=== PATIENT | male | born 1965 | race Hispanic/Latino ===

== ENCOUNTER 2023-02-04 13:07 | Inpatient (IN) | payer OTHER ==
[~2023-02-04 13:07] MED LIST: Iopamidol 370 76% 100 ML VIAL ONE
[2023-02-04] MEDS ORDERED: Acetaminophen 500 MG TAB ONE (13:42)
[2023-02-04 13:43] LABS: #Basophils 0.1 10x3/uL (0.0-0.2); #Eosinphils 0.2 10x3/uL (0.0-0.5); #Monocytes 0.6 10x3/uL (0.0-1.1); #Neutrophils 11.2 10x3/uL (1.5-8.4); %Basophils 0.5 % (0.0-2.0); %Eosinophils 1.2 % (0.0-6.0); %Lymphocytes 6.7 % (18.0-47.0); %Monocytes 4.7 % (0.0-10.0); %Neutrophils 86.4 % (40.0-75.0); Hematocrit 40.4 % (38.8-50.0); Hemoglobin 13.4 g/dL (13.5-17.5); Mean Corpuscular HGB CONC 33.2 g/dL (32.0-36.0); Mean Corpuscular Hemoglobin 29.1 pg (27.0-33.0); Mean Corpuscular Volume 87.6 fl (81.2-95.1); Mean Platelet Volume 9.4 fl (7.4-10.4); Platelet Count 335 10x3/uL (150-450); RBC Distribution Width 14.1 % (11.5-14.5); Red Blood Cell (RBC) Count 4.61 10x6/uL (4.32-5.72); White Blood Cell (WBC) Count 12.9 10x3/uL (3.5-10.5)
[2023-02-04 14:10] LABS: ALT (SGPT) 41 U/L (8-55); AST (SGOT) 21 U/L (5-34); Albumin 3.5 g/dL (3.5-5.0); Alkaline Phosphatase 60 U/L (40-110); Anion Gap 13 mmol/L (10-20); BUN (Urea Nitrogen) 25 mg/dL (8.4-25.7); Bilirubin, Total 0.4 mg/dL (0.2-1.2); Calc. Creatinine Clearance 0 mL/min (70-130); Calcium 8.5 mg/dL (7.8-10.44); Carbon Dioxide 26 mmol/L (22-29); Chloride 103 mmol/L (98-107); Estimated GFR 70; Glucose 200 mg/dL (70-105); Potassium 4.6 mmol/L (3.5-5.1); Protein, Total 6.5 g/dL (6.0-8.3); Sodium 137 mmol/L (136-145)
[2023-02-04 14:16] LABS: Troponin I Less than 0.010 ng/mL (< 0.028)
[2023-02-04] MEDS ORDERED: Cefepime 2 GM VIAL ONE (14:18)
[2023-02-04] MEDS ORDERED: Vancomycin 1 GM VIAL ONE (14:19)
[2023-02-04] MEDS ORDERED: Vancomycin HCl 500 MG VIAL ONE (14:19)
[2023-02-04 15:22] LABS: SARS-CoV-2 NAA Rapid Test Not Detected (NotDetected)
[2023-02-04 17:31] LABS: Lactic Acid 2.1 mmol/L (0.5-2.2)
[2023-02-04] MEDS ORDERED: Ondansetron PF 4 MG/2 ML Vial IVP PRN (17:56)
[2023-02-04] MEDS ORDERED: Ondansetron ODT 4 MG TAB PO PRN (17:56)
[2023-02-04] MEDS ORDERED: Dextrose 5% in Water 1,000 ML IV PRN (18:04)
[2023-02-04] MEDS ORDERED: Glucagon 1 MG/ML KIT IM PRN (18:04)
[2023-02-04] MEDS ORDERED: Dextrose 50% Abboject 50 ML SYRINGE SLOW IVP PRN (18:04)
[2023-02-04] MEDS: Sodium Chloride 0.9% 1,000 ML IV SCH (20:40)
[2023-02-04 21:19] VITALS: BMI 30.7
[2023-02-04] MEDS ORDERED: LevoFLOXacin 750 mg/D5W 150 ml Premix Bag ONE (21:40)
[2023-02-04] MEDS: LevoFLOXacin 750 mg/D5W 750 MG in Premix Bag 1 BAG IVPB SCH (21:52)
[2023-02-04] MEDS: HumaLOG 300 UNITS/3 ML VIAL SC PRN (23:11)
[2023-02-05] MEDS: Cefepime 2 GM in Sodium Chloride 0.9% 100 ML IVPB SCH ×2 (01:18→14:42)
[2023-02-05] MEDS: Vancomycin HCl 1 GM in Sodium Chloride 0.9% 250 ML 250 ML IVPB SCH ×2 (01:19→14:43)
[2023-02-05] MEDS: Acetaminophen 325 MG TAB PO PRN ×2 (01:49→08:23)
[2023-02-05 04:35] LABS: #Basophils 0.1 10x3/uL (0.0-0.2); #Eosinphils 0.3 10x3/uL (0.0-0.5); #Monocytes 0.7 10x3/uL (0.0-1.1); #Neutrophils 5.8 10x3/uL (1.5-8.4); %Basophils 0.6 % (0.0-2.0); %Eosinophils 3.5 % (0.0-6.0); %Monocytes 8.4 % (0.0-10.0); Hemoglobin 11.7 g/dL (13.5-17.5); Mean Corpuscular HGB CONC 32.5 g/dL (32.0-36.0); Mean Corpuscular Hemoglobin 28.6 pg (27.0-33.0); Mean Platelet Volume 9.6 fl (7.4-10.4); Platelet Count 277 10x3/uL (150-450); RBC Distribution Width 14.4 % (11.5-14.5); Red Blood Cell (RBC) Count 4.09 10x6/uL (4.32-5.72); White Blood Cell (WBC) Count 8.7 10x3/uL (3.5-10.5)
[2023-02-05 04:59] LABS: Anion Gap 12 mmol/L (10-20); BUN (Urea Nitrogen) 15 mg/dL (8.4-25.7); Calc. Creatinine Clearance 144 mL/min (70-130); Calcium 8.3 mg/dL (7.8-10.44); Carbon Dioxide 25 mmol/L (22-29); Chloride 106 mmol/L (98-107); Estimated GFR 103; Glucose 174 mg/dL (70-105); Potassium 3.9 mmol/L (3.5-5.1); Sodium 139 mmol/L (136-145)
[2023-02-05] MEDS: Sodium Chloride 0.9% 1,000 ML IV SCH ×2 (06:28→21:34)
[2023-02-05] MEDS: HumaLOG 300 UNITS/3 ML VIAL SC PRN ×4 (06:30→21:36)
[2023-02-05] MEDS ORDERED: Morphine 2 MG/ML VIAL SLOW IVP PRN (15:13)
[2023-02-05] MEDS: HYDROcodone/Acetaminophen 5/325 mg Tablet PO PRN ×2 (15:49→21:35)
[2023-02-05] MEDS: Atorvastatin Calcium 40 MG TAB PO SCH (21:34)
[2023-02-05] MEDS: Gabapentin 300 MG CAP PO SCH (21:34)
[2023-02-05] MEDS: Calcium Carbonate 500 MG ChewTAB PO SCH (21:35)
[2023-02-05] MEDS: Fenofibrate Nanocrystallized 145 MG TAB PO SCH (21:35)
[2023-02-05] MEDS: LevoFLOXacin 750 mg/D5W 750 MG in Premix Bag 1 BAG IVPB SCH (21:37)
[2023-02-06 01:29] LABS: Vancomycin, Trough 4.3 ug/mL
[2023-02-06] MEDS: Cefepime 2 GM in Sodium Chloride 0.9% 100 ML IVPB SCH (01:58)
[2023-02-06] MEDS: Vancomycin HCl 1 GM in Sodium Chloride 0.9% 250 ML 250 ML IVPB SCH (02:34)
[2023-02-06 04:18] LABS: #Basophils 0.1 10x3/uL (0.0-0.2); #Eosinphils 0.5 10x3/uL (0.0-0.5); #Monocytes 0.6 10x3/uL (0.0-1.1); #Neutrophils 3.8 10x3/uL (1.5-8.4); %Basophils 1.1 % (0.0-2.0); %Eosinophils 7.5 % (0.0-6.0); %Lymphocytes 29.8 % (18.0-47.0); %Monocytes 7.8 % (0.0-10.0); %Neutrophils 53.4 % (40.0-75.0); Hematocrit 36.7 % (38.8-50.0); Hemoglobin 12.1 g/dL (13.5-17.5); Mean Corpuscular Hemoglobin 28.9 pg (27.0-33.0); Mean Corpuscular Volume 87.8 fl (81.2-95.1); Mean Platelet Volume 9.7 fl (7.4-10.4); Platelet Count 247 10x3/uL (150-450); RBC Distribution Width 13.9 % (11.5-14.5); Red Blood Cell (RBC) Count 4.18 10x6/uL (4.32-5.72); White Blood Cell (WBC) Count 7.1 10x3/uL (3.5-10.5)
[2023-02-06 04:35] LABS: Anion Gap 9 mmol/L (10-20); BUN (Urea Nitrogen) 15 mg/dL (8.4-25.7); Calc. Creatinine Clearance 154 mL/min (70-130); Calcium 8.7 mg/dL (7.8-10.44); Carbon Dioxide 27 mmol/L (22-29); Chloride 105 mmol/L (98-107); Estimated GFR 105; Glucose 232 mg/dL (70-105); Potassium 4.3 mmol/L (3.5-5.1); Sodium 137 mmol/L (136-145)
[2023-02-06] MEDS ORDERED: Vancomycin 1.5 GRAM/300 ML BAG 1.5 GM in Premix Bag 1 BAG IVPB SCH (09:00)
[2023-02-06] MEDS: DULoxetine 30 MG CAP PO SCH (11:41)
[2023-02-06] MEDS: HYDROcodone/Acetaminophen 5/325 mg Tablet PO PRN ×3 (11:41→21:39)
[2023-02-06] MEDS: Lisinopril 20 MG TAB PO SCH (11:42)
[2023-02-06] MEDS: Aspirin 81 mg Enteric Coated Tablet PO SCH (11:42)
[2023-02-06] MEDS: Gabapentin 300 MG CAP PO SCH ×3 (11:42→21:28)
[2023-02-06] MEDS: Hydrochlorothiazide 25 MG TAB PO SCH (11:42)
[2023-02-06] MEDS: Sodium Chloride 0.9% 1,000 ML IV SCH (11:43)
[2023-02-06] MEDS: Calcium Carbonate 500 MG ChewTAB PO SCH ×3 (11:43→21:30)
[2023-02-06] MEDS: HumaLOG 300 UNITS/3 ML VIAL SC PRN ×2 (16:21→22:07)
[2023-02-06] MEDS: metFORMIN 500 MG TAB PO SCH (16:31)
[2023-02-06] MEDS: LevoFLOXacin 750 mg/D5W 750 MG in Premix Bag 1 BAG IVPB SCH (21:30)
[2023-02-06] MEDS: Atorvastatin Calcium 40 MG TAB PO SCH (21:30)
[2023-02-06] MEDS: Fenofibrate Nanocrystallized 145 MG TAB PO SCH (22:59)
[2023-02-07 04:00] LABS: #Basophils 0.1 10x3/uL (0.0-0.2); #Eosinphils 0.7 10x3/uL (0.0-0.5); #Monocytes 0.7 10x3/uL (0.0-1.1); #Neutrophils 3.7 10x3/uL (1.5-8.4); %Basophils 0.7 % (0.0-2.0); %Eosinophils 9.8 % (0.0-6.0); %Lymphocytes 30.1 % (18.0-47.0); %Neutrophils 50.1 % (40.0-75.0); Hematocrit 38.5 % (38.8-50.0); Hemoglobin 12.7 g/dL (13.5-17.5); Mean Corpuscular Hemoglobin 28.9 pg (27.0-33.0); Mean Corpuscular Volume 87.7 fl (81.2-95.1); Platelet Count 237 10x3/uL (150-450); RBC Distribution Width 13.8 % (11.5-14.5); Red Blood Cell (RBC) Count 4.39 10x6/uL (4.32-5.72); White Blood Cell (WBC) Count 7.5 10x3/uL (3.5-10.5)
[2023-02-07 04:14] LABS: Anion Gap 10 mmol/L (10-20); BUN (Urea Nitrogen) 19 mg/dL (8.4-25.7); Calc. Creatinine Clearance 142 mL/min (70-130); Calcium 9.2 mg/dL (7.8-10.44); Carbon Dioxide 29 mmol/L (22-29); Chloride 100 mmol/L (98-107); Estimated GFR 102; Glucose 264 mg/dL (70-105); Potassium 4.3 mmol/L (3.5-5.1); Sodium 135 mmol/L (136-145)
[2023-02-07] MEDS: HumaLOG 300 UNITS/3 ML VIAL SC PRN ×3 (07:18→15:22)
[2023-02-07] MEDS: metFORMIN 500 MG TAB PO SCH ×2 (07:18→15:23)
[2023-02-07] MEDS: Sodium Chloride 0.9% 1,000 ML IV SCH (07:22)
[2023-02-07] MEDS ORDERED: LevoFLOXacin 500 MG TAB PO SCH (07:30)
[2023-02-07] MEDS: HYDROcodone/Acetaminophen 5/325 mg Tablet PO PRN ×3 (09:08→21:14)
[2023-02-07] MEDS: Lisinopril 20 MG TAB PO SCH (09:09)
[2023-02-07] MEDS: Gabapentin 300 MG CAP PO SCH ×3 (09:09→21:05)
[2023-02-07] MEDS: Aspirin 81 mg Enteric Coated Tablet PO SCH (09:09)
[2023-02-07] MEDS: Calcium Carbonate 500 MG ChewTAB PO SCH ×3 (09:09→21:05)
[2023-02-07] MEDS: DULoxetine 30 MG CAP PO SCH (09:09)
[2023-02-07] MEDS: Hydrochlorothiazide 25 MG TAB PO SCH (09:10)
[2023-02-07 20:15] LABS: Vancomycin, Trough Less than 1.1 ug/mL
[2023-02-07] MEDS: Fenofibrate Nanocrystallized 145 MG TAB PO SCH (21:05)
[2023-02-07] MEDS: Atorvastatin Calcium 40 MG TAB PO SCH (21:05)
[2023-02-08] MEDS ORDERED: LevoFLOXacin 500 MG TAB PO SCH (06:00)
[2023-02-08] MEDS: HumaLOG 300 UNITS/3 ML VIAL SC PRN ×4 (06:02→21:27)
[2023-02-08] MEDS: metFORMIN 500 MG TAB PO SCH ×2 (06:42→14:40)
[2023-02-08] MEDS: HYDROcodone/Acetaminophen 5/325 mg Tablet PO PRN ×2 (06:42→20:28)
[2023-02-08] MEDS: Calcium Carbonate 500 MG ChewTAB PO SCH ×3 (08:28→20:27)
[2023-02-08] MEDS: Lisinopril 20 MG TAB PO SCH (08:29)
[2023-02-08] MEDS: Hydrochlorothiazide 25 MG TAB PO SCH (08:29)
[2023-02-08] MEDS: DULoxetine 30 MG CAP PO SCH (08:29)
[2023-02-08] MEDS: Gabapentin 300 MG CAP PO SCH ×3 (08:29→20:29)
[2023-02-08] MEDS: Aspirin 81 mg Enteric Coated Tablet PO SCH (08:29)
[2023-02-08] MEDS: Atorvastatin Calcium 40 MG TAB PO SCH (20:29)
[2023-02-08] MEDS: Fenofibrate Nanocrystallized 145 MG TAB PO SCH (20:29)
[2023-02-09] MEDS: LevoFLOXacin 750 MG TAB PO SCH (05:11)
[2023-02-09] MEDS: HYDROcodone/Acetaminophen 5/325 mg Tablet PO PRN ×2 (05:15→19:57)
[2023-02-09] MEDS: HumaLOG 300 UNITS/3 ML VIAL SC PRN ×3 (06:14→20:02)
[2023-02-09] MEDS: Hydrochlorothiazide 25 MG TAB PO SCH (08:24)
[2023-02-09] MEDS: Aspirin 81 mg Enteric Coated Tablet PO SCH (08:24)
[2023-02-09] MEDS: Calcium Carbonate 500 MG ChewTAB PO SCH ×3 (08:24→20:00)
[2023-02-09] MEDS: metFORMIN 500 MG TAB PO SCH ×2 (08:25→15:05)
[2023-02-09] MEDS: Gabapentin 300 MG CAP PO SCH ×3 (08:25→20:00)
[2023-02-09] MEDS: DULoxetine 30 MG CAP PO SCH (08:25)
[2023-02-09] MEDS: Lisinopril 20 MG TAB PO SCH (08:25)
[2023-02-09] MEDS ORDERED: Lantus 1000 UNITS/10 ML VIAL SC SCH (13:30)
[2023-02-09] MEDS: Atorvastatin Calcium 40 MG TAB PO SCH (20:00)
[2023-02-09] MEDS: Fenofibrate Nanocrystallized 145 MG TAB PO SCH (20:01)
[2023-02-09] MEDS: Insulin NPH Human Isophane 100 UNITS/ML (10 ML VIAL) SQ SCH (20:06)
[2023-02-10] MEDS: LevoFLOXacin 750 MG TAB PO SCH (05:06)
[2023-02-10] MEDS: HumaLOG 300 UNITS/3 ML VIAL SC PRN ×2 (05:22→11:15)
[2023-02-10] MEDS: DULoxetine 30 MG CAP PO SCH (08:07)
[2023-02-10] MEDS: Hydrochlorothiazide 25 MG TAB PO SCH (08:07)
[2023-02-10] MEDS: Lisinopril 20 MG TAB PO SCH (08:07)
[2023-02-10] MEDS: Gabapentin 300 MG CAP PO SCH ×3 (08:07→20:24)
[2023-02-10] MEDS: Aspirin 81 mg Enteric Coated Tablet PO SCH (08:08)
[2023-02-10] MEDS: metFORMIN 500 MG TAB PO SCH ×2 (08:08→16:50)
[2023-02-10] MEDS: Calcium Carbonate 500 MG ChewTAB PO SCH ×3 (08:08→20:28)
[2023-02-10] MEDS: Insulin NPH Human Isophane 100 UNITS/ML (10 ML VIAL) SQ SCH ×2 (08:09→20:24)
[2023-02-10 08:48] LABS: Anion Gap 13 mmol/L (10-20); BUN (Urea Nitrogen) 28 mg/dL (8.4-25.7); Calc. Creatinine Clearance 129 mL/min (70-130); Calcium 9.7 mg/dL (7.8-10.44); Carbon Dioxide 29 mmol/L (22-29); Chloride 97 mmol/L (98-107); Estimated GFR 101; Glucose 180 mg/dL (70-105); Potassium 4.4 mmol/L (3.5-5.1); Sodium 135 mmol/L (136-145)
[2023-02-10] MEDS: HYDROcodone/Acetaminophen 5/325 mg Tablet PO PRN ×2 (10:17→16:50)
[2023-02-10] MEDS ORDERED: glipiZIDE 5 MG TAB PO SCH (12:00)
[2023-02-10] MEDS: Atorvastatin Calcium 40 MG TAB PO SCH (20:25)
[2023-02-10] MEDS: Fenofibrate Nanocrystallized 145 MG TAB PO SCH (20:26)
[2023-02-10 20:59] VITALS: BP 101/61; TEMP 97.8
== END 2023-02-10 20:40 | DRG 205 ==
LOC: SUATTDRO 13:07 → CSHERS 13:07 → EEVIPCON 20:21 → CSHTELE 20:21
PROVIDERS: ADMIT Student in an Organized Health Care Education/Training Program; ATTEND Internal Medicine
DX: J98.11 Atelectasis (principal); J18.9 Pneumonia, unspecified organism; N17.9 Acute kidney failure, unspecified; E11.9 Type 2 diabetes mellitus without complications; I10 Essential (primary) hypertension; E78.5 Hyperlipidemia, unspecified; Z20.822 Contact with and (suspected) exposure to COVID-19; I95.9 Hypotension, unspecified; E86.0 Dehydration; Z89.512 Acquired absence of left leg below knee
CPT/HCPCS: 36415; 36416; 71045; 71275; 80048; 80053; 80202; 83605; 83735; 84484; 85025; 87040; 87081; 93005; 94760; 97139; J0692; J1815; J1956; J3370; J3490; J7050; Q9967